=== PATIENT | male | born 1990 | race Caucasian/White ===

== ENCOUNTER 2022-02-02 09:46 | Emergency (ER) | payer OTHER, SELFPAY ==
[2022-02-02 09:47] VITALS: BP 127/66; PULSE 64; RESP 16; TEMP 36.6; O2SAT 100; BMI 23.3
[2022-02-02] MEDS: Sulfamethox/Trimeth 800/160 TABLET 1 TAB PO (10:31)
[2022-02-02] MEDS: cephALEXin 500 MG CAPSULE PO (10:31)
--- NOTE | 2022-02-02 10:33 | ED.GENADULT ---
HPI - General Adult General Chief complaint: General Medical Stated complaint: abscess Time Seen by Provider: 02/02/22 10:18 Source: patient Mode of arrival: ambulatory Limitations: no limitations History of Present Illness HPI narrative: Pt here for pain to left forearm after IV drug use. Pain x 2 days. No increasing pain or swelling over past 48 hrs. No redness, no fever. Pt also complaining of mild constipation. No abdominal pain, mild cramping. Tried Miralax yesterday. Treatments prior to arrival: none Related Data Previous Rx's Medication Instructions Recorded cephalexin 500 mg tablet 500 mg PO BID #14 tab 02/02/22 docusate sodium 100 mg capsule 100 mg PO BID #20 cap 02/02/22 (Colace) sulfamethoxazole 400 1 tab PO BID #14 tab 02/02/22 mg-trimethoprim 80 mg tablet (Bactrim) buprenorphine 300 mg/1.5 mL 300 mg (1.5 mL) SUBCUT ONCE 30 04/11/22 solution,exten.rel.subcutaneous Days #1.5 ml syringe (Sublocade) buprenorphine 8 mg-naloxone 2 mg 2 film SUBLINGUAL DAILY 7 Days #14 04/11/22 sublingual film (Suboxone) ea Allergies Allergy/AdvReac Type Severity Reaction Status Date / Time Peanut (Diagnostic) Allergy Severe anaphylaxis Uncoded 02/02/22 09:54 pollen Allergy Unknown Itchy Eyes Uncoded 02/02/22 09:54 Review of Systems Review of Systems: Yes all other systems are reviewed and are negative Constitutional: Constitutional: Reports as per HPI Eyes: Eyes: Reports no additional eye complaints ENT: Reports system reviewed and no additional complaints, except as documented Cardiovascular: Cardiovascular: Reports no additional cardiovascular complaints Respiratory: Respiratory: Reports no additional respiratory complaints Gastrointestinal: Gastrointestinal: Reports constipation (last bowel movement 2 days ago, pt has had problems with constipation prior) Comments: no abdominal pain Genitourinary: Genitourinary: Reports no additional male genitourinary complaints Musculoskeletal: Musculoskeletal: Reports no additional musculoskeletal complaints PMFSH Past Medical History Medical History (Updated 04/14/22 @ 15:43 by Lakeisha Chavez MD) Drug abuse Opioid use disorder Physical Exam ED Vital Signs: Vital Signs - 24 hr 02/02/22 09:47 Temperature 97.8 F Pulse Rate 64 Respiratory Rate 16 Blood Pressure 127/66 Pulse Oximetry 100 BMI result Body Mass Index 23.3 Vital signs reviewed. Const General: cooperative and no acute distress HENMT Head: Yes normal to inspection Resp Auscultation: clear to auscultation bilaterally Cardio Rate: regular rate Rhythm: regular rhythm GI Inspection: Yes normal to inspection Auscultation: normal bowel sounds Skin Other: mild tenderness to left forearm, no erythema or induration. Psych Other: pt. cooperative, does not appear anxious. Appearance: grossly normal Affect: normal affect Discharge Plan Discharge Clinical Impression: Phlebitis of superficial vein of upper extremity, Constipation, IV drug user Patient Disposition: Home, Self-Care Instructions: Constipation (ED), Phlebitis (ED) Additional Instructions: Drink plenty of fluids. Take medications as prescribed. Return if worse, increading pain or development of redness or fever. Prescriptions: New sulfamethoxazole-trimethoprim [Bactrim] 400-80 mg tablet 1 tab PO BID Qty: 14 0RF cephalexin 500 mg tablet 500 mg PO BID Qty: 14 0RF docusate sodium [Colace] 100 mg capsule 100 mg PO BID Qty: 20 0RF No Action buprenorphine-naloxone [Suboxone] 8-2 mg film 2 film sublingual DAILY 7 Days Qty: 14 0RF Rx Instructions: place 1 strip/tab under (each) side of tongue Sublocade 300 mg/1.5 mL solution, extended rel syringe 300 mg subcut ONCE 30 Days Qty: 1.5 1RF Interventions: ED Discharge Assessment Last Done: 02/02/22 10:34 Discharge Date/Time: 02/02/22 10:35
== END 2022-02-02 10:35 | disposition home or self-care (01) ==
PROVIDERS: Emergency Provider Emergency Medicine
DX: I80.9 Phlebitis and thrombophlebitis of unspecified site (principal); F11.10 Opioid abuse, uncomplicated; K59.00 Constipation, unspecified; Z79.899 Other long term (current) drug therapy
CPT/HCPCS: 99283

== ENCOUNTER 2022-04-11 10:27 | Outpatient (REF) | payer OTHER, SELFPAY ==
[2022-04-11 17:47] LABS: Fentanyl, urine POSITIVE (Not Detect)
== END 2022-04-11 10:28 | disposition home or self-care (01) ==
LOC: CF 10:27
PROVIDERS: Visit Provider Internal Medicine
DX: F11.20 Opioid dependence, uncomplicated (principal); Z51.81 Encounter for therapeutic drug level monitoring; Z79.899 Other long term (current) drug therapy
CPT/HCPCS: 80305; 80307; 99202